=== PATIENT | male | born 1950 | race Two or more races ===

== ENCOUNTER 2018-09-19 08:21 | Outpatient (CLI) | payer OTHER | END 2018-09-19 08:23 | disposition home or self-care (01) | LOC: NUCLEAR 08:21 | DX: R07.89 Other chest pain (principal) ==

== ENCOUNTER 2021-07-20 08:09 | Outpatient (CLI) | payer OTHER | END 2021-07-20 08:14 | disposition home or self-care (01) | LOC: RAD 08:09 | PROVIDERS: ATTEND Orthopaedic Surgery | DX: M25.511 Pain in right shoulder (principal) ==